=== PATIENT | male | born 1995 | race Caucasian/White ===

== ENCOUNTER 2017-10-23 06:37 | Emergency (ER) | payer BC, SELFPAY ==
[2017-10-23 06:39] VITALS: BP 129/70; PULSE 81; RESP 18; TEMP 36.6; O2SAT 99; BMI 21.4
[2017-10-23] MEDS: 0.9% Normal Saline 1,000 ML 1000 ML IV (07:44)
[2017-10-23] MEDS: Ketorolac 30 MG/ML Syringe IV (07:44)
[2017-10-23 08:09] LABS: Absolute Neutrophil Count 8.2 X10^3/uL (2.0-7.7); Basophil# 0.04 X10^3/uL; Basophil% 0.4 % (0-1); Eosinophil# 0.21 X10^3/uL; Eosinophils% 1.9 % (0-5); Hemoglobin 16.4 g/dl (13.0-16.5); Lymphocyte % 10.2 % (19-41); Mean Corp Hgb Conc 34.9 g/gl (32-36); Mean Corpuscular Hgb 31.4 pg (27.0-32.0); Mean Corpuscular Volume 89.9 fL (80-94); Mean Platelet Vol. 10.5 fl (6.2-12.0); Monocyte# 1.26 X10^3/uL; Monocyte% 11.7 % (0-10); Neutrophil # 8.15 X10^3/uL (2.7-7.7); Neutrophil % 75.6 % (47-70); Platelet Count 252 K/mm3 (150-450); RBC Distribution Width CV 12.4 % (11.6-14.6); RBC Distribution Width SD 40.2 fl (35.1-43.9); Red Blood Count 5.23 M/mm3 (4.6-6.2); White Blood Count 10.8 K/mm3 (4.4-11.0)
[2017-10-23 08:14] LABS: ALB/GLOB Ratio 1.2 RATIO (0.9-2.4); AST(SGOT) 20 U/L (15-37); Alanine Aminotransfer ALT/SGPT 25 U/L (16-61); Albumin, Serum 4.1 g/dL (3.2-5.0); Alkaline Phosphatase 77 U/L (45-117); Anion Gap 2 (5-15); BUN 10 mg/dL (7-18); BUN/Creat Ratio 9.3 RATIO (10-20); Calcium,Total 8.7 mg/dL (8.5-10.1); Chloride 104 mmol/L (98-107); Creatinine, Serum 1.07 mg/dL (0.70-1.30); EST Glomerular Filtration Rate 92 mL/min (>60); Est Glom Filt Rate - Afr Amer 111 mL/min (>60); Estimated Creatinine Clearance 103.54 ml/min; Globulin 3.4 g/dL (2.2-4.2); Glucose 108 mg/dL (74-106); Lipase 73 U/L (73-393); Potassium 4.1 mmol/L (3.5-5.1); Protein, Total 7.5 g/dL (6.4-8.2); Sodium Level 140 mmol/L (136-145)
[2017-10-23 08:15] LABS: POSITIVE COUNT NO; POSITIVE DIFFERENTIAL NO; POSITIVE MORPHOLOGY NO
--- NOTE | 2017-10-23 08:25 | ED.VISSUMM ---
- ER Visit Summary Date of Service: 10/23/17 Chief Complaint: Abdominal pain History of Present Illness: The patient is a 22 M who presents with abdominal pain. It began about 2 hours prior to presentation. He has describes it as sharp and in the bilateral upper quadrants. He states it really does not hurt in the middle in the epigastric region but rather 2 distinct areas on either side of the upper abdomen. He denies associated symptoms such as fevers nausea vomiting diarrhea. No chest pain or shortness of breath. He denies any activity where he may have strained his abdominal wall. Physical Examination: Afebrile vitals are normal Patient resting comfortably no distress Moist mucous membranes Heart regular rate and rhythm Lungs are clear Abdomen soft nondistended he has diffuse nonfocal abdominal tenderness he has voluntary guarding. When asked to relax his abdominal muscles he is able to easily do so and examined this soft with no palpable mass or hepatosplenomegaly. Test Results: CBC CMP lipase normal. Emergency Department Course and Treatment: Patient was treated with IV fluids and Toradol. On reevaluation he states his pain is resolved. He is resting comfortably. Repeat abdominal exam is benign with no reproducible tenderness. I explained to the patient I am uncertain of the etiology of his abdominal pain but I do not believe it is due to serious life-threatening or surgical process. He was advised to follow-up as an outpatient as needed. He was instructed on supportive care. He is instructed on specific signs and symptoms to monitor for, conditions under which to return to the emergency department. He was discharged. Treatment Plan: [] Disposition: Discharge Impression: Abdominal pain, uncertain etiology This note was generated with [employer] dictation software. It may contain incorrect words, spelling, and punctuation that were not noted in review of the chart prior to signing ED Disposition - Plan for ED Patient: Chief Complaint: Abd Pain Referrals: [facility] Doctor,Out of [Primary Care Provider] -
--- NOTE | 2017-10-23 08:27 | ED.DEP ---
ED Disposition - Plan for ED Patient: Chief Complaint: Abd Pain Instructions: ED Abdominal Pain Unkn Cause Male Referrals: [facility] Doctor,Out of [Primary Care Provider] -
[2017-10-23 08:30] VITALS: BP 128/69; PULSE 75; RESP 16; O2SAT 98
== END 2017-10-23 08:33 | disposition home or self-care (01) ==
LOC: ED 07:32
PROVIDERS: Emergency Provider Emergency Medicine
DX: R10.84 Generalized abdominal pain (principal)
CPT/HCPCS: 80053; 83690; 85025; 96361; 96374; 99283; J7030